=== PATIENT | female | born 1990 | race African-American/Black ===

== ENCOUNTER 2025-05-24 08:11 | Emergency (ER) | payer OTHER ==
[~2025-05-24] VITALS: Ht 160 cm; Wt 121.2 kg
[2025-05-24 09:25] LABS: BASO # 0.0 10^3/uL (0.0-0.2); BASO % 0.3 % (0.0-1.0); EOS # 0.0 10^3/uL (0.0-0.5); EOS % 0.0 % (0.0-3.0); LYMPH # 0.5 10^3/uL (1.5-5.0); LYMPH % 5.3 % (24.0-44.0); MONO # 0.7 10^3/uL (0.0-0.8); MONO % 7.1 % (2.0-8.0); NEUTROPHILS # 8.8 10^3/uL (1.5-8.5); NEUTROPHILS % 86.7 % (36.0-66.0); PLATELET COUNT, AUTOMATED 290 10^3/uL (150-450)
[2025-05-24 09:44] LABS: KETONE, URINE AUTO RFX TRACE mg/dL (NEGATIVE); LEUKOCYTE ESTERASE UR AUTO RFX NEGATIVE (NEGATIVE); MUCUS, URINE RFX LARGE (NEGATIVE); NITRITE, URINE AUTO RFX NEGATIVE (NEGATIVE); RBC, URINE AUTO RFX 10 /HPF (0-3); SQUAM EPITHELIAL CELL UR AURFX 8 /HPF (0-6); WBC, URINE AUTO RFX 3 /HPF (0-3)
[2025-05-24 09:53] LABS: HCG, SERUM QUALITATIVE NEGATIVE (NEGATIVE)
[2025-05-24 10:05] LABS: ALT/SGPT 17 U/L (7.0-40); AST/SGOT 19 U/L (<34); CALCIUM LEVEL 8.7 MG/DL (8.5-10.1); CARBON DIOXIDE LEVEL 25 MMOL/L (20-31); CHLORIDE LEVEL 104 MMOL/L (98-107); CREATININE FOR GFR 1.00 MG/DL (0.55-1.30); GLOMERULAR FILTRATION RATE 76.8 (>60); POTASSIUM SERUM 3.6 MMOL/L (3.5-5.1); SODIUM LEVEL 138 MMOL/L (136-145)
[2025-05-24] MEDS: OSELTAMIVIR PHOSPHATE 75 MG CAP PO ONE (10:48)
[2025-05-24] MEDS: CHLORTHALIDONE 25 MG TAB PO ONE (10:48)
[2025-05-24] MEDS: ACETAMINOPHEN 500 MG TAB PO ONE (10:48)
[2025-05-24 10:49] VITALS: BP 217/107
[2025-05-24] MEDS: LOSARTAN 50 MG TABLET PO ONE (10:49)
[2025-05-24] MEDS ORDERED: OSEL75CA PO (11:14)
[2025-05-24] MEDS ORDERED: LOSA50TA28 PO (11:14)
[2025-05-24 11:37] VITALS: BP 174/98; TEMP 99.1; O2SAT 99
== END 2025-05-24 11:38 | disposition home or self-care (01) ==
LOC: M ED 08:11
DX: J09.X9 Influenza due to identified novel influenza A virus with other manifestations (principal); I10 Essential (primary) hypertension; E66.9 Obesity, unspecified; Z68.42 Body mass index [BMI] 45.0-49.9, adult

== ENCOUNTER 2025-05-28 00:06 | Emergency (ER) | payer OTHER ==
[~2025-05-28] VITALS: Ht 160 cm; Wt 116.9 kg
[~2025-05-28 00:06] MED LIST: LOSA50TA28 PO; OSEL75CA PO
[2025-05-28 00:45] LABS: PLATELET COUNT, AUTOMATED 304 10^3/uL (150-450)
[2025-05-28 01:10] LABS: ALT/SGPT 44 U/L (7.0-40); AST/SGOT 40 U/L (<34); CALCIUM LEVEL 8.8 MG/DL (8.5-10.1); CARBON DIOXIDE LEVEL 26 MMOL/L (20-31); CHLORIDE LEVEL 98 MMOL/L (98-107); CREATININE FOR GFR 1.54 MG/DL (0.55-1.30); GLOMERULAR FILTRATION RATE 45.7 (>60); POTASSIUM SERUM 3.3 MMOL/L (3.5-5.1); SODIUM LEVEL 138 MMOL/L (136-145)
[2025-05-28 01:11] LABS: HCG, SERUM QUALITATIVE NEGATIVE (NEGATIVE)
[2025-05-28 02:13] VITALS: BP 144/93; TEMP 98.3; O2SAT 99
[2025-05-28 02:26] LABS: ATYPICAL LYMPH 4 % (0-5); LYMPHOCYTES 26 % (16-44); MONOCYTES 12 % (0-5); NEUTROPHILS 56 % (28-66)
[2025-05-28 02:27] LABS: PLATELET ESTIMATE NORMAL (NORMAL)
== END 2025-05-28 03:09 | disposition left against medical advice (07) ==
LOC: M ED 00:06
DX: Z53.21 Procedure and treatment not carried out due to patient leaving prior to being seen by health care provider (principal)